=== PATIENT | female | born 1955 | race Caucasian/White ===

== ENCOUNTER → 2025-05-09 | Outpatient (CLI) | payer MEDICARE, SELFPAY ==
--- NOTE | 2025-05-09 14:17 | RAD_ITS ---
PROCEDURE: PELVIS 1 OR 2 VIEWS 05/09/2025 REASON FOR EXAM: ARTHRITIS TECHNIQUE: PELVIS 1 OR 2 VIEWS COMPARISON: None RAD/Pelvis 1 or 2 Views IMPRESSION: Prominent degenerative changes are seen of the visualized lower lumbar spine, i ncluding lumbar levo rotoscoliosis. Sacroiliac joints demonstrate minimal degenerative changes. Hip joints appear within the normal range for age. No evidence of joint space narrowing. No evidence of femoral head osteonecrosis. No evidence of inflammatory arthritis. No fracture or dislocation is seen. Reading Location: [place] [id number]
--- NOTE | 2025-05-09 14:17 | RAD_ITS ---
PROCEDURE: CHEST PA AND LATERAL 05/09/2025 REASON FOR EXAM: ARTHRITIS TECHNIQUE: CHEST PA AND LATERAL COMPARISON: None FINDINGS: Bibasilar subsegmental atelectasis. No focal consolidation. No pleural effusion or pneumothorax. Heart is borderline enlarged. No acute fractures. RAD/Chest PA and Lateral IMPRESSION: Bibasilar subsegmental atelectasis. No focal consolidation. Reading Location: [id number]
[2025-05-09 19:20] LABS: AST(SGOT) 19 U/L (<=31); Alanine Aminotransfer ALT/SGPT 15 U/L (<=34); Albumin, Serum 4.2 g/dL (3.4-4.8); Alkaline Phosphatase 83 U/L (35-104); Anion Gap 13 (5-15); BUN 18 mg/dL (4-19); BUN/Creat Ratio 26.4 RATIO (10-20); Calcium,Total 9.4 mg/dL (7.6-11.0); Carbon Dioxide 20.4 mmol/L (21.0-32.0); Chloride 105 mmol/L (98-108); Globulin 3.1 g/dL (2.2-4.2); Glucose 81 mg/dL (70-99); Hematocrit 39.2 % (37-47); Hemoglobin 13.6 g/dL (12.0-15.0); Hepatitis B Surface Antigen Nonreactive (Nonreactive); Hepatitis C Antibody Nonreactive (Nonreactive); Immature Granulocytes Count 0.010 X10^3/uL (0.0-0.0); Mean Corp Hgb Conc 34.7 g/dL (32-36); Mean Corpuscular Volume 89.5 fL (81-99); Mean Platelet Vol. 10.7 fl (6.2-12.0); NRBC Flagged by Analyzer 0 % (0-5); Platelet Count 204 K/mm3 (150-450); Potassium 4.0 mmol/L (3.3-5.1); RBC Distribution Width CV 12.4 % (11.6-14.6); RBC Distribution Width SD 40.9 fl (35.1-43.9); Red Blood Count 4.38 M/mm3 (4.2-5.4); White Blood Count 6.4 K/mm3 (4.4-11.0)
[2025-05-09 19:22] LABS: CRP 3.65 mg/L (0.0-3.0)
[2025-05-11 14:08] LABS: ANTINUCLEAR ANTIBODIES DIRECT Negative (Negative)
== END | disposition home or self-care (01) ==
PROVIDERS: PCP Family Medicine; Referring Provider Internal Medicine Rheumatology; Visit Provider Internal Medicine Rheumatology
DX: Z79.899 Other long term (current) drug therapy (principal); L40.59 Other psoriatic arthropathy; L40.8 Other psoriasis
CPT/HCPCS: 36415; 71046; 72170; 80053; 85025; 85652; 86038; 86140; 86200; 86431; 86706; 86803; 87340